=== PATIENT | female | born 1975 | race Hispanic/Latino ===

== ENCOUNTER 2025-04-26 08:09 | Emergency (ER) | payer OTHER ==
[~2025-04-26] VITALS: Ht 152.4 cm; Wt 79.8 kg
[2025-04-26] MEDS: SODIUM CHLORIDE 0.9% 1000ML 1,000 ML IV STA (08:53)
[2025-04-26] MEDS: ONDANSETRON HCL INJ 2MG/ML 2ML 2 MG/ML VIAL IV STA (08:54)
[2025-04-26 08:58] LABS: LEUKOCYTE ESTERASE ,URINE NEGATIVE (NEGATIVE); PROTEIN,URINE DIPSTICK NEGATIVE (NEGATIVE); URINE UROBILINOGEN 0.2 mg/dL (0.2 - 1)
[2025-04-26 09:01] LABS: BASOPHILS % 0.5 % (0.0-1.0); EOSINOPHILS % 1.6 % (0.0-6.0); LYMPHOCYTES % 30.4 % (18.0-39.1); MONOCYTES % 5.9 % (4.4-11.3); NEUTROPHILS % 61.0 % (38.7-80.0); RED CELL DISTRIBUTION WIDTH 13.3 % (11.7-14.4)
[2025-04-26 09:03] LABS: EPITHELIAL CELLS,URINE MANY /LPF; WBC,URINE (MAN) 0-5 /HPF (0-5)
[2025-04-26 09:27] LABS: INR 0.83
[2025-04-26 09:37] LABS: EST GLOMERULAR FILTRATION RATE 109 ML/MIN (>=60)
[2025-04-26] MEDS: KETOROLAC TROMETHAMINE 30 MG/ML VIAL IV STA (09:47)
[2025-04-26] MEDS ORDERED: ULTRAM 50MG50 MG PO (10:51)
[2025-04-26] MEDS ORDERED: ONDANSETRON ODT4 MG PO (10:58)
[2025-04-26 10:59] VITALS: PULSE 64; RESP 18; TEMP 98.6; O2SAT 99
== END 2025-04-26 11:07 | disposition home or self-care (01) ==
LOC: ER 08:33
DX: R30.0 Dysuria (principal); N20.0 Calculus of kidney; R10.32 Left lower quadrant pain; E11.65 Type 2 diabetes mellitus with hyperglycemia; E78.5 Hyperlipidemia, unspecified
CPT/HCPCS: 36415; 74176; 80053; 81001; 83735; 84702; 85025; 85610; 85730; 87086; 99284; J1885; J2405; J7030